=== PATIENT | male | born 1975 | race African-American/Black ===

== ENCOUNTER 2018-02-07 23:30 | Emergency (ER) | payer MEDICAID ==
[~2018-02-07] VITALS: Ht 170.2 cm; Wt 72.6 kg
[~2018-02-07 23:30] MED LIST: LEVE1000 PO; LEVE500T9 PO; SER100 PO
[2018-02-07 23:40] VITALS: BP_SYST 145
[2018-02-07] MEDS ORDERED: LORazepam 2 MG/ML VIAL (FOR ER USE) IVP ONE (23:45)
[2018-02-07] MEDS ORDERED: levETIRAcetam 500 MG TABLET PO ONE (23:45)
[2018-02-08] MEDS ORDERED: DIPHENHYDRAMINE HCL 25 MG CAPSULE PO ONE
[2018-02-08 00:01] LABS: BASOPHILS % (AUTO) 0.4 % (0.0-2.0); EOSINOPHILS # (AUTO) 0.1 K/uL (0.0-0.4); EOSINOPHILS % (AUTO) 1.7 % (0.0-4.0); HEMATOCRIT 39.5 % (36-54); HEMOGLOBIN 12.4 g/dL (14.0-18.0); LYMPHOCYTES # (AUTO) 2.1 K/uL (1.0-5.5); LYMPHOCYTES % (AUTO) 38.1 % (20.5-51.5); MEAN CORPUSCULAR HEMOGLOBIN 25 pg (27-31); MEAN CORPUSCULAR HGB CONC 32 % (32-36); MEAN CORPUSCULAR VOLUME 80 fL (79.0-98.0); MONOCYTES # (AUTO) 0.5 K/uL (0.0-1.0); MONOCYTES % (AUTO) 9.7 % (1.7-9.3); NEUTROPHILS # (AUTO) 2.9 K/uL (1.8-7.7); NEUTROPHILS % (AUTO) 50.1 % (40.0-70.0); PLATELET COUNT (AUTO) 230 K/uL (130-430); RED BLOOD CELL COUNT(AUTO) 4.97 MIL/uL (4.2-6.2); RED CELL DISTRIBUTION WIDTH 23.4 % (9.0-15.0); WHITE BLOOD COUNT (AUTO) 5.6 K/uL (4.8-10.8)
[2018-02-08 00:10] LABS: ANION GAP 13 (5-15); CALCIUM 9.3 mg/dL (8.4-11.0); CHLORIDE 105 mmol/L (98-107); CREATININE 1.11 mg/dL (0.55-1.30); GLUCOSE 103 mg/dL (70-99); POTASSIUM 3.7 mmol/L (3.5-5.1); SODIUM SERUM 142 mmol/L (136-145); UREA NITROGEN, BLOOD 8 mg/dL (8-21)
[2018-02-08 00:16] LABS: GFR AFRICAN AMERICAN 94 mL/min (>90)
[2018-02-08 00:17] LABS: ALANINE AMINOTRANSFERASE 37 U/L (12-78); ALBUMIN 4.2 g/dL (3.4-4.8); ALCOHOL, BLOOD 391 mg/dL (<10); ASPARTATE AMINOTRANSFERASE 47 U/L (10-37); TOTAL BILIRUBIN 0.2 mg/dL (0.0-1.0)
[2018-02-08] MEDS ORDERED: ONDANSETRON HCL 4 MG/2 ML VIAL IVP ONE (00:30)
[2018-02-08] MEDS ORDERED: FAMOTIDINE 20 MG TABLET PO ONE (00:30)
[2018-02-08 00:41] LABS: ACETAMINOPHEN < 1 ug/mL (1-30)
[2018-02-08 00:52] LABS: BILIRUBIN,URINE NEGATIVE (NEGATIVE); BLOOD, URINE NEGATIVE (NEGATIVE); CLARITY/URINE CLEAR (CLEAR); COLOR,URINE YELLOW (YELLOW); GLUCOSE,URINE NEGATIVE (NEGATIVE); KETONES,URINE NEGATIVE (NEGATIVE); LEUKOCYTE ESTERASE ,URINE NEGATIVE (NEGATIVE); NITRITE, URINE NEGATIVE (NEGATIVE); PROTEIN URINE NEGATIVE (NEGATIVE); UROBILINOGEN,URINE 0.2 (0.2-1.0)
[2018-02-08 00:59] LABS: BENZODIAZEPINE, URINE POSITIVE (NEG <=150)
[2018-02-08 01:00] LABS: BARBITURATE, URINE NEGATIVE (NEG <=200); CANNABINOID, URINE NEGATIVE (NEG <=50); COCAINE, URINE NEGATIVE (NEG <=150); METHAMPHETAMINES SCREEN,URINE NEGATIVE (NEG <=500); OPIATE, URINE NEGATIVE (NEG <=100); PHENCYCLIDINE SCREEN,URINE NEGATIVE (NEG <=25); UR TRICYCLIC ANTIDEPRESSANTS NEGATIVE (NEG <=300); URINE AMPHETAMINE NEGATIVE (NEG <=500); URINE METHADONE NEGATIVE (NEG <=200); URINE OXYCODONE SCREEN NEGATIVE (NEG <=100); URINE PROPOXYPHENE SCREEN NEGATIVE (NEG <=300)
[2018-02-08] MEDS ORDERED: DIPHENHYDRAMINE HCL 50 MG CAPSULE PO ONE ×2 (10:45→12:30)
[2018-02-08] MEDS ORDERED: levETIRAcetam 500 MG TABLET PO ONE (11:15)
[2018-02-08] MEDS ORDERED: DIPHENHYDRAMINE INJ 50 MG/ML VIAL IVP ONE (17:45)
[2018-02-08] MEDS ORDERED: LORazepam 2 MG/ML VIAL (FOR ER USE) IVP ONE (20:45)
[2018-02-09 02:55] VITALS: BP_SYST 141
== END 2018-02-09 02:55 ==
LOC: SED 23:30
DX: R45.851 Suicidal ideations (principal); G40.909 Epilepsy, unspecified, not intractable, without status epilepticus; F10.129 Alcohol abuse with intoxication, unspecified; Z88.6 Allergy status to analgesic agent; Z79.899 Other long term (current) drug therapy
CPT/HCPCS: 36415; 71045; 80053; 80307; 81003; 85025; 93005; 96374; 96375; 99285; G0480; G0482; J1200; J2060; J2405; Q0163 ×2

== ENCOUNTER 2018-08-06 21:11 | Inpatient (IN) | payer MEDICAID ==
[~2018-08-06] VITALS: Ht 167.6 cm; Wt 61.2 kg
[2018-08-06 21:14] VITALS: BP_SYST 147
[2018-08-06] MEDS ORDERED: methylPREDNISolone SOD SUCC/PF 62.5 MG/ML VIAL IM ONE (21:15)
[2018-08-06] MEDS ORDERED: EPINEPHrine 1 MG/ML AMP IM ONE (21:15)
[2018-08-06] MEDS ORDERED: DIPHENHYDRAMINE INJ 50 MG/ML VIAL IM ONE (21:15)
[2018-08-06] MEDS ORDERED: NACL 0.9% 1,000 ML IV ONE (21:15)
[2018-08-06] MEDS ORDERED: EPINEPHrine 1 MG/ML AMP ONE (21:23)
[2018-08-06] MEDS ORDERED: IPRATROPIUM/ALBUTEROL SULFATE 3 ML AMPUL.NEB (DUONEB) ONE (21:28)
[2018-08-06] MEDS ORDERED: IPRATROPIUM/ALBUTEROL SULFATE 3 ML AMPUL.NEB (DUONEB) INH ONE (21:30)
[2018-08-06 22:01] LABS: BILIRUBIN,URINE NEGATIVE (NEGATIVE); BLOOD, URINE 1+ (NEGATIVE); CLARITY/URINE CLEAR (CLEAR); COLOR,URINE YELLOW (YELLOW); GLUCOSE,URINE NEGATIVE (NEGATIVE); KETONES,URINE TRACE (NEGATIVE); LEUKOCYTE ESTERASE ,URINE NEGATIVE (NEGATIVE); NITRITE, URINE NEGATIVE (NEGATIVE); PH,URINE 5.5 (5.0-8.0); PROTEIN URINE 2+ (NEGATIVE); UROBILINOGEN,URINE 0.2 (0.2-1.0)
[2018-08-06 22:07] LABS: ANION GAP 14 (5-15); CALCIUM 8.6 mg/dL (8.4-11.0); CHLORIDE 103 mmol/L (98-107); CREATININE 0.88 mg/dL (0.55-1.30); GLUCOSE 111 mg/dL (70-99); POTASSIUM 3.9 mmol/L (3.5-5.1); SODIUM SERUM 141 mmol/L (136-145); UREA NITROGEN, BLOOD 9 mg/dL (8-21)
[2018-08-06 22:12] LABS: BACTERIA,URINE RARE /HPF (None Seen); RBC,URINE 0-3 /HPF (0-3); WBC,URINE 0-3 /HPF (0-3)
[2018-08-06 22:13] LABS: MUCUS,URINE None Seen /LPF (None Seen)
[2018-08-06 22:14] LABS: GFR AFRICAN AMERICAN 123 mL/min (>90)
[2018-08-06 22:15] LABS: ALANINE AMINOTRANSFERASE 122 U/L (12-78); ALBUMIN 4.1 g/dL (3.4-4.8); ASPARTATE AMINOTRANSFERASE 112 U/L (10-37); TOTAL BILIRUBIN 0.2 mg/dL (0.0-1.0)
[2018-08-06] MEDS ORDERED: MORPHINE 4 MG/ML INJ. SYRINGE IVP ONE (22:15)
[2018-08-06 22:19] LABS: ACETAMINOPHEN < 1 ug/mL (1-30); ALCOHOL, BLOOD 411 mg/dL (<10)
[2018-08-06 22:20] LABS: BARBITURATE, URINE NEGATIVE (NEG <=200); BENZODIAZEPINE, URINE NEGATIVE (NEG <=150); CANNABINOID, URINE NEGATIVE (NEG <=50); COCAINE, URINE NEGATIVE (NEG <=150); METHAMPHETAMINES SCREEN,URINE NEGATIVE (NEG <=500); PHENCYCLIDINE SCREEN,URINE NEGATIVE (NEG <=25); URINE AMPHETAMINE NEGATIVE (NEG <=500); URINE METHADONE NEGATIVE (NEG <=200)
[2018-08-06 22:21] LABS: OPIATE, URINE NEGATIVE (NEG <=100); UR TRICYCLIC ANTIDEPRESSANTS NEGATIVE (NEG <=300); URINE OXYCODONE SCREEN NEGATIVE (NEG <=100); URINE PROPOXYPHENE SCREEN NEGATIVE (NEG <=300)
[2018-08-06 22:28] LABS: HEMATOCRIT 32.1 % (36-54); RED BLOOD CELL COUNT(AUTO) 4.49 MIL/uL (4.2-6.2); WHITE BLOOD COUNT (AUTO) 6.8 K/uL (4.8-10.8)
[2018-08-06 22:29] LABS: MEAN CORPUSCULAR HEMOGLOBIN 22 pg (27-31); MEAN CORPUSCULAR HGB CONC 31 % (32-36); MEAN CORPUSCULAR VOLUME 72 fL (79.0-98.0); PLATELET COUNT (AUTO) 222 K/uL (130-430); RED CELL DISTRIBUTION WIDTH 28.2 % (9.0-15.0)
[2018-08-06] MEDS ORDERED: KLO2 PO (22:37)
[2018-08-06] MEDS ORDERED: LEVE750T12 PO (22:37)
[2018-08-06 23:09] LABS: BAND % (MANUAL) 1 % (0-6); LYMPHOCYTES % (MANUAL) 51 % (20-46)
[2018-08-06 23:10] LABS: BASOPHILS % (MANUAL) 0 % (0-2); EOSINOPHILS % (MANUAL) 0 % (0-7); MONOCYTES % (MANUAL) 5 % (0-11)
[2018-08-06] MEDS ORDERED: D5NS 1,000 ML IV SCH (23:30)
[2018-08-06 23:45] VITALS: BP_SYST 155
[2018-08-07] MEDS: DIPHENHYDRAMINE HCL 25 MG CAPSULE PO PRN ×4 (01:40→18:32)
[2018-08-07] MEDS: LORazepam 1 MG TABLET PO PRN ×2 (01:40→06:20)
[2018-08-07] MEDS: MORPHINE 4 MG/ML INJ. SYRINGE IVP PRN ×6 (01:41→23:33)
[2018-08-07 01:58] VITALS: BP_SYST 118
[2018-08-07 08:00] VITALS: BP_SYST 104
[2018-08-07] MEDS ORDERED: chlordiazePOXIDE HCL 25 MG CAPSULE PO ONE (09:45)
[2018-08-07] MEDS: levETIRAcetam 500 MG in NS 100 ML IV SCH ×2 (10:29→21:34)
[2018-08-07 11:32] VITALS: BP_SYST 149
[2018-08-07] MEDS: BANANA BAG 1 EA, FOLIC ACID 1 MG, THIAMINE HCL 100 MG, MAGNESIUM SULFATE 1 GM, MVI 10 M... IV SCH ×5 (12:03)
[2018-08-07] MEDS: chlordiazePOXIDE HCL 25 MG CAPSULE PO SCH ×2 (14:25→21:34)
[2018-08-07 15:21] VITALS: BP_SYST 125
[2018-08-07] MEDS: LORazepam 2 MG/ML VIAL IVP PRN (17:39)
[2018-08-07 20:00] VITALS: BP_SYST 136
[2018-08-08 00:34] VITALS: BP_SYST 153
[2018-08-08] MEDS: LORazepam 2 MG/ML VIAL IVP PRN ×2 (01:20→21:08)
[2018-08-08 07:38] LABS: TOTAL IRON BIND. CAPACITY 384 ug/dL (250-450)
[2018-08-08 07:52] LABS: THYROID STIMULATING HORMONE 0.37 uIu/mL (0.36-3.74)
[2018-08-08 08:10] VITALS: BP_SYST 132
[2018-08-08] MEDS: chlordiazePOXIDE HCL 25 MG CAPSULE PO SCH ×3 (09:07→20:59)
[2018-08-08] MEDS: levETIRAcetam 500 MG in NS 100 ML IV SCH ×2 (09:07→21:00)
[2018-08-08] MEDS: MORPHINE 4 MG/ML INJ. SYRINGE IVP PRN ×2 (09:37→16:24)
[2018-08-08] MEDS: BANANA BAG 1 EA, FOLIC ACID 1 MG, THIAMINE HCL 100 MG, MAGNESIUM SULFATE 1 GM, MVI 10 M... IV SCH ×5 (09:53)
[2018-08-08 12:38] VITALS: BP_SYST 120
[2018-08-08] MEDS: DIPHENHYDRAMINE HCL 25 MG CAPSULE PO PRN ×2 (13:11→20:59)
[2018-08-08 15:50] VITALS: BP_SYST 108
[2018-08-08 20:58] VITALS: BP_SYST 132
[2018-08-08 23:34] VITALS: BP_SYST 134
[2018-08-09] MEDS: DIPHENHYDRAMINE HCL 25 MG CAPSULE PO PRN (04:31)
[2018-08-09] MEDS: LORazepam 2 MG/ML VIAL IVP PRN ×2 (05:04→23:14)
[2018-08-09] MEDS: chlordiazePOXIDE HCL 25 MG CAPSULE PO SCH ×3 (08:36→21:11)
[2018-08-09] MEDS: levETIRAcetam 500 MG in NS 100 ML IV SCH ×2 (08:36→21:12)
[2018-08-09 08:40] VITALS: BP_SYST 113
[2018-08-09] MEDS: BANANA BAG 1 EA, FOLIC ACID 1 MG, THIAMINE HCL 100 MG, MAGNESIUM SULFATE 1 GM, MVI 10 M... IV SCH ×5 (10:30)
[2018-08-09 11:22] VITALS: BP_SYST 118
[2018-08-09] MEDS: MORPHINE 4 MG/ML INJ. SYRINGE IVP PRN ×2 (11:25→19:40)
[2018-08-09 13:06] LABS: FOLATE (FOLIC ACID) >20.0 ng/mL (>3.0)
[2018-08-09 13:56] LABS: FERRITIN 25 ng/mL (30-400)
[2018-08-09 15:15] VITALS: BP_SYST 115
[2018-08-09 20:00] VITALS: BP_SYST 92
[2018-08-10 02:51] VITALS: BP_SYST 108
[2018-08-10] MEDS: levETIRAcetam 500 MG in NS 100 ML IV SCH ×2 (08:23→20:33)
[2018-08-10] MEDS: MORPHINE 4 MG/ML INJ. SYRINGE IVP PRN ×3 (08:24→20:34)
[2018-08-10 08:44] VITALS: BP_SYST 122
[2018-08-10] MEDS: chlordiazePOXIDE HCL 25 MG CAPSULE PO SCH ×3 (09:19→20:33)
[2018-08-10] MEDS: BANANA BAG 1 EA, FOLIC ACID 1 MG, THIAMINE HCL 100 MG, MAGNESIUM SULFATE 1 GM, MVI 10 M... IV SCH ×5 (10:04)
[2018-08-10 11:28] VITALS: BP_SYST 122
[2018-08-10 15:27] VITALS: BP_SYST 125
[2018-08-10] MEDS: LORazepam 2 MG/ML VIAL IVP PRN ×2 (17:04→22:31)
[2018-08-10 20:00] VITALS: BP_SYST 127
[2018-08-11 00:22] VITALS: BP_SYST 134
[2018-08-11] MEDS: MORPHINE 4 MG/ML INJ. SYRINGE IVP PRN (03:09)
[2018-08-11] MEDS: LORazepam 2 MG/ML VIAL IVP PRN (05:04)
[2018-08-11] MEDS: chlordiazePOXIDE HCL 25 MG CAPSULE PO SCH (08:28)
[2018-08-11] MEDS: levETIRAcetam 500 MG in NS 100 ML IV SCH (08:28)
[2018-08-11 08:42] VITALS: BP_SYST 118
[2018-08-11] MEDS: BANANA BAG 1 EA, FOLIC ACID 1 MG, THIAMINE HCL 100 MG, MAGNESIUM SULFATE 1 GM, MVI 10 M... IV SCH ×5 (10:48)
[2018-08-11 12:37] VITALS: BP_SYST 134
[2018-08-11] MEDS ORDERED: LEVE500T9 PO (13:47)
[2018-08-11 13:55] VITALS: BP_SYST 118
== END 2018-08-11 14:20 | disposition home or self-care (01) | DRG 53 ==
LOC: SED 21:11 → SMU 23:21
PROVIDERS: ADMIT Internal Medicine Hospice and Palliative Medicine; ATTEND Internal Medicine Hospice and Palliative Medicine
DX: G40.909 Epilepsy, unspecified, not intractable, without status epilepticus (principal); R65.10 Systemic inflammatory response syndrome (SIRS) of non-infectious origin without acute organ dysfunction; D64.9 Anemia, unspecified; F10.229 Alcohol dependence with intoxication, unspecified; R74.0 Nonspecific elevation of levels of transaminase and lactic acid dehydrogenase [LDH]; F12.90 Cannabis use, unspecified, uncomplicated; F17.200 Nicotine dependence, unspecified, uncomplicated; Z91.14 Patient's other noncompliance with medication regimen; Z59.0 Homelessness; Z88.8 Allergy status to other drugs, medicaments and biological substances; Z79.899 Other long term (current) drug therapy
CPT/HCPCS: 36415; 70551; 71045; 76700-TC; 80053; 80307; 81000-TC; 82607; 82728; 82746; 82962; 83540-TC; 83550-TC; 83615-TC; 84443-TC; 84484; 85007; 85027; 87081; 93005; 94640; 96361; 96372; 96374; 97110-GP; 97116-GP; 97530-GP; 99285; G0480; G0481; G0482; J0171; J1200; J1953; J2060; J2270; J2930; J3411; J3475; J3490; J7030; J7042; J7620; Q0163

== ENCOUNTER 2019-10-10 15:19 | Emergency (ER) | payer MEDICAID ==
[~2019-10-10] VITALS: Ht 167.6 cm; Wt 63.5 kg
[~2019-10-10 15:19] MED LIST changes: +KLO2 PO; -LEVE1000 PO; -SER100 PO
[2019-10-10 15:21] VITALS: BP_SYST 125
--- NOTE | 2019-10-10 15:21 | NUR ---
Patient to ER bed 02 to gown for evaluation. Side rails up.
--- NOTE | 2019-10-10 15:25 | NUR ---
Pt bib ambulance to ER with c/o abdominal pain 03/16 x 4 hours. Reports n/v and bloody emesis.
--- NOTE | 2019-10-10 15:30 | NUR ---
ER Dr. Robledo at bedside examining patient.
[2019-10-10] MEDS ORDERED: NACL 0.9% 1,000 ML IV ONE (15:45)
--- NOTE | 2019-10-10 16:10 | NUR ---
Lab at bedside to collect blood samples
--- NOTE | 2019-10-10 16:20 | NUR ---
# 24 gauge angiocath placed to L foot. Use of asceptic technique. Opsite placed over site. Blood return noted. Flushed with 10 cc of normal saline. No evidence of infiltration noted. Patient tolerated well.
--- NOTE | 2019-10-10 16:25 | NUR ---
1L NS infusing as ordered by
[2019-10-10 16:34] LABS: HEMOGLOBIN 11.7 g/dL (14.0-18.0); MEAN CORPUSCULAR HEMOGLOBIN 24 pg (27-31); MEAN CORPUSCULAR HGB CONC 32 % (32-36); MEAN CORPUSCULAR VOLUME 77 fL (79.0-98.0); PLATELET COUNT (AUTO) 111 K/uL (130-430); RED BLOOD CELL COUNT(AUTO) 4.81 MIL/uL (4.2-6.2); RED CELL DISTRIBUTION WIDTH 25.8 % (9.0-15.0); WHITE BLOOD COUNT (AUTO) 3.2 K/uL (4.8-10.8)
[2019-10-10 16:42] LABS: CALCIUM 8.4 mg/dL (8.4-11.0); CREATININE 0.91 mg/dL (0.55-1.30); POTASSIUM 3.9 mmol/L (3.5-5.1)
[2019-10-10 16:50] LABS: ALBUMIN 3.8 g/dL (3.4-4.8); TOTAL BILIRUBIN 0.3 mg/dL (0.0-1.0)
[2019-10-10 17:21] LABS: BAND % (MANUAL) 0 % (0-6); BASOPHILS % (MANUAL) 0 % (0-2); EOSINOPHILS % (MANUAL) 3 % (0-7); LYMPHOCYTES % (MANUAL) 39 % (20-46); MONOCYTES % (MANUAL) 18 % (0-11)
[2019-10-10] MEDS ORDERED: fentaNYL CITRATE/PF 100 MCG/2 ML AMP IVP ONE (17:30)
[2019-10-10] MEDS ORDERED: DIPHENHYDRAMINE INJ 50 MG/ML VIAL IVP ONE (17:30)
--- NOTE | 2019-10-10 17:35 | NUR ---
Medicated the pt w/ Fentanyl and Benadryl given IVP per MD order. Will reassess
--- NOTE | 2019-10-10 18:50 | NUR ---
Patient given written and verbal discharge instructions and verbalizes understanding. ER MD discussed with patient the results and treatment provided. Patient in stable condition. ID arm band removed. IV catheter removed intact and dressing applied, no active bleeding. Rx of Carafate given. Patient educated on pain management and to follow up with PMD. Pain Scale 3/10. Opportunity for questions provided and answered. Medication side effect fact sheet provided.
--- NOTE | 2019-10-10 18:56 | NUR ---
Pt provided w/ transportation to his destination, pt has adequate clothing, meal provided, and homeless packet provided
--- NOTE | 2019-10-10 19:05 | NUR ---
Patient given written and verbal discharge instructions and verbalizes understanding. ER MD discussed with patient the results and treatment provided. Patient in stable condition. ID arm band removed. IV catheter removed intact and dressing applied, no active bleeding. Rx of Carafate given. Patient educated on pain management and to follow up with PMD. Pain Scale 3. Opportunity for questions provided and answered. Medication side effect fact sheet provided.
[2019-10-10 19:08] VITALS: BP_SYST 143
== END 2019-10-10 19:08 | disposition home or self-care (01) ==
LOC: SED 15:19
DX: K29.20 Alcoholic gastritis without bleeding (principal); F10.10 Alcohol abuse, uncomplicated; R11.2 Nausea with vomiting, unspecified; G40.909 Epilepsy, unspecified, not intractable, without status epilepticus; Z88.6 Allergy status to analgesic agent; Y90.8 Blood alcohol level of 240 mg/100 ml or more
CPT/HCPCS: 36415; 80053; 83690; 85007; 85027; 96361; 96374; 96375; 99284; G0482; J1200; J3010; J7030

== ENCOUNTER 2019-10-12 21:18 | Emergency (ER) | payer MEDICAID ==
[~2019-10-12] VITALS: Ht 167.6 cm; Wt 63.5 kg
[2019-10-12 21:18] VITALS: BP_SYST 149
[2019-10-12] MEDS ORDERED: FAMOTIDINE 20 MG TABLET PO ONE (21:45)
[2019-10-12] MEDS ORDERED: predniSONE 1 MG TABLET PO ONE (21:45)
[2019-10-12] MEDS ORDERED: PREDNISONE 20 MG TABLET ONE (22:07)
[2019-10-13 00:10] VITALS: BP_SYST 119
== END 2019-10-13 00:10 | disposition home or self-care (01) ==
LOC: SED 21:18
DX: T51.91XA Toxic effect of unspecified alcohol, accidental (unintentional), initial encounter (principal); G40.909 Epilepsy, unspecified, not intractable, without status epilepticus; F10.10 Alcohol abuse, uncomplicated; Z88.6 Allergy status to analgesic agent; X58.XXXA Exposure to other specified factors, initial encounter; Y90.9 Presence of alcohol in blood, level not specified
CPT/HCPCS: 99283; J7512

== ENCOUNTER 2021-12-23 17:22 | Emergency (ER) | payer MEDICAID ==
[~2021-12-23] VITALS: Ht 167.6 cm; Wt 63.5 kg
[2021-12-23 17:22] VITALS: BP_SYST 137
[2021-12-23] MEDS ORDERED: NACL 0.9% 1,000 ML IV ONE (17:30)
[2021-12-23] MEDS ORDERED: methylPREDNISolone SOD SUCC/PF 62.5 MG/ML VIAL IVP ONE (17:30)
[2021-12-23] MEDS ORDERED: FAMOTIDINE PF 20 MG/2 ML VIAL IVP ONE (17:30)
[2021-12-23] MEDS ORDERED: DIPHENHYDRAMINE INJ 50 MG/ML VIAL IVP ONE (17:30)
[2021-12-23] MEDS ORDERED: methylPREDNISolone SOD SUCC/PF 62.5 MG/ML VIAL ONE (18:13)
[2021-12-23] MEDS ORDERED: EPIN0.3P3 IM (20:54)
[2021-12-23] MEDS ORDERED: PRED20TA PO (20:54)
[2021-12-23] MEDS ORDERED: BEN50 PO (20:54)
[2021-12-23 21:19] VITALS: BP_SYST 115
== END 2021-12-23 21:19 | disposition home or self-care (01) ==
LOC: SED 17:22
DX: T78.1XXA Other adverse food reactions, not elsewhere classified, initial encounter (principal); Z91.018 Allergy to other foods; Z88.6 Allergy status to analgesic agent; Z79.899 Other long term (current) drug therapy; X58.XXXA Exposure to other specified factors, initial encounter
CPT/HCPCS: 99284; 96374; 96375; 96361; J1200; J3490; J2930; J7030

== ENCOUNTER 2022-05-28 23:57 | Emergency (ER) | payer MEDICAID ==
[~2022-05-28] VITALS: Ht 167.6 cm; Wt 65.8 kg
[~2022-05-28 23:57] MED LIST changes: +BEN50 PO; +EPIN0.3P3 IM; +PRED20TA PO
[2022-05-28 23:59] VITALS: BP_SYST 139
[2022-05-29] MEDS ORDERED: LORazepam 2 MG/ML VIAL IM ONE
[2022-05-29] MEDS ORDERED: NACL 0.9% 1,000 ML IV ONE
[2022-05-29] MEDS ORDERED: levETIRAcetam 500 MG in NS 100 ML IV ONE ×2
--- NOTE | 2022-05-29 | NUR ---
LATE ENTRY: PT STARTED HAVING SEIZURE AT 2351. MADE AWARE AND VERBAL ORDER OF ATIVAN 2MG IM REC. PRIMARY NURSE VALARIE MADE AWARE.
--- NOTE | 2022-05-29 | NUR ---
Patient to ER bed 01 to gown for evaluation. Side rails up. Report given to VALARIE FLYNN.
--- NOTE | 2022-05-29 | NUR ---
ERMD AT BEDSIDE EVALUATING PATIENT
--- NOTE | 2022-05-29 00:05 | NUR ---
# 20 gauge angiocath placed to L AC. Use of asceptic technique. Opsite placed over site. Blood return noted. Blood for lab drawn from site. Flushed with 10 cc of normal saline. No evidence of infiltration noted. Patient tolerated well.
--- NOTE | 2022-05-29 00:10 | NUR ---
PT BIB AMB FROM STREETS. PT WAS FOUND LAYING ON [facility] BUS FLOOR. PT STATES HE HAD A SEIZURE. SEIZURE WAS UNWITNESSED. PATIENT WAS ALERT UPON ARIVAL TO ED. PT STATES HE HAS A HISTORY OF SEIZURES AND LUNG CANCER. UNKNOWN IF PATIENT HIT HEAD. PATIENT DENIES PAIN, SOB, HEADACHE, CHEST PAIN, DRUG USE. A/O X3. PATIENT GOES IN AND OUT OF SLEEP. ETOH ON PATIENTS BREATH.
--- NOTE | 2022-05-29 00:32 | NUR ---
LAB AT BEDSIDE
[2022-05-29 00:48] LABS: BASOPHILS % (AUTO) 0.2 % (0.0-2.0); HEMATOCRIT 37.7 % (36-54); LYMPHOCYTES # (AUTO) 1.1 K/uL (1.0-5.5); MEAN CORPUSCULAR HEMOGLOBIN 26 pg (27-31); MEAN CORPUSCULAR HGB CONC 32 % (32-36); MEAN CORPUSCULAR VOLUME 82 fL (79.0-98.0); MONOCYTES # (AUTO) 0.1 K/uL (0.0-1.0); MONOCYTES % (AUTO) 3.3 % (1.7-9.3); NEUTROPHILS # (AUTO) 1.6 K/uL (1.8-7.7); NEUTROPHILS % (AUTO) 57.5 % (40.0-70.0); PLATELET COUNT (AUTO) 269 K/uL (130-430); RED CELL DISTRIBUTION WIDTH 22.1 % (9.0-15.0); WHITE BLOOD COUNT (AUTO) 2.8 K/uL (4.8-10.8)
[2022-05-29 00:55] LABS: CREATININE 0.79 mg/dL (0.55-1.30)
--- NOTE | 2022-05-29 01:00 | NUR ---
IV removed from L AC due to bent IV cath. Full dose of keppra was administered.
[2022-05-29 01:05] LABS: ALBUMIN 3.5 g/dL (3.4-4.8); TOTAL BILIRUBIN 0.1 mg/dL (0.0-1.0)
--- NOTE | 2022-05-29 02:01 | NUR ---
Pt is not compliant and combative when attempting to place an IV. No IV placement at this time.
[2022-05-29 04:48] VITALS: BP_SYST 136
--- NOTE | 2022-05-29 04:48 | NUR ---
Patient resting quietly. No acute distress noted. Vital signs within normal range.
[2022-05-29] MEDS ORDERED: LEVE500T9 PO (05:25)
--- NOTE | 2022-05-29 07:29 | NUR ---
ASSUMED PATIENT CARE EYE CLOSE EASILY AWAKEN ON GUARD [place]ENA[place], SEIZURE PRECAUTION IN PLACE, WILL CONTINUE TO MONITOR.
--- NOTE | 2022-05-29 08:47 | NUR ---
PATIENT REMAINS IN BED, AWAITING FOR PATIENT TO SOBER UP.
--- NOTE | 2022-05-29 09:06 | NUR ---
PATIENT AWAKEN AMBULATORY TO THE BATHROOM, BREAKFAST GIVEN, EDP MADE AWARE AWAITING FOR DISPOSITION.
--- NOTE | 2022-05-29 09:24 | NUR ---
Patient given written and verbal discharge instructions and verbalizes understanding. ER MD discussed with patient the results and treatment provided. Patient in stable condition. ID arm band removed. IV catheter removed intact and dressing applied, no active bleeding. Rx of KEPPRA given. Patient educated on pain management and to follow up with PMD. Pain Scale 0. Opportunity for questions provided and answered. Medication side effect fact sheet provided.
--- NOTE | 2022-05-29 09:25 | NUR ---
PATIENT GIVEN CHLOTHING AND INSTRUCTION.
== END 2022-05-29 09:24 | disposition home or self-care (01) ==
LOC: SED 23:57
DX: F10.129 Alcohol abuse with intoxication, unspecified (principal); R56.9 Unspecified convulsions; Z88.6 Allergy status to analgesic agent; Z91.018 Allergy to other foods; Z79.899 Other long term (current) drug therapy; Y90.6 Blood alcohol level of 120-199 mg/100 ml
CPT/HCPCS: 99285; 71045; 80053; 85025; 36415; 96365; 70450; 76376; 96372; G0482; J7030

== ENCOUNTER 2022-09-19 18:16 | Emergency (ER) | payer MEDICAID ==
[~2022-09-19] VITALS: Ht 167.6 cm; Wt 63.5 kg
[2022-09-19 18:26] VITALS: BP_SYST 123
[2022-09-19] MEDS ORDERED: PANTOPRAZOLE SODIUM 40 MG/VIAL (PROTONIX) IVP ONE (18:30)
[2022-09-19] MEDS ORDERED: ONDANSETRON HCL 4 MG/2 ML VIAL IVP ONE (18:30)
[2022-09-19 19:24] LABS: BASOPHILS % (AUTO) 0.1 % (0.0-2.0); EOSINOPHILS % (AUTO) 0.7 % (0.0-4.0); HEMATOCRIT 34.8 % (36-54); HEMOGLOBIN 11.2 g/dL (14.0-18.0); LYMPHOCYTES # (AUTO) 2.1 K/uL (1.0-5.5); LYMPHOCYTES % (AUTO) 36.1 % (20.5-51.5); MEAN CORPUSCULAR HEMOGLOBIN 25 pg (27-31); MEAN CORPUSCULAR HGB CONC 32 % (32-36); MEAN CORPUSCULAR VOLUME 77 fL (79.0-98.0); MONOCYTES # (AUTO) 0.5 K/uL (0.0-1.0); MONOCYTES % (AUTO) 8.8 % (1.7-9.3); NEUTROPHILS # (AUTO) 3.1 K/uL (1.8-7.7); NEUTROPHILS % (AUTO) 54.3 % (40.0-70.0); PLATELET COUNT (AUTO) 139 K/uL (130-430); RED BLOOD CELL COUNT(AUTO) 4.52 MIL/uL (4.2-6.2); RED CELL DISTRIBUTION WIDTH 24.3 % (9.0-15.0); WHITE BLOOD COUNT (AUTO) 5.8 K/uL (4.8-10.8)
[2022-09-19] MEDS ORDERED: DIPHENHYDRAMINE INJ 50 MG/ML VIAL IVP ONE (19:30)
[2022-09-19 19:42] LABS: CREATININE 0.89 mg/dL (0.55-1.30)
[2022-09-19 19:46] LABS: ALBUMIN 3.5 g/dL (3.4-4.8); TOTAL BILIRUBIN 0.3 mg/dL (0.0-1.0)
[2022-09-19] MEDS ORDERED: OMEP40CA20 PO (21:42)
[2022-09-20 00:18] VITALS: BP_SYST 107
== END 2022-09-20 00:18 | disposition home or self-care (01) ==
LOC: SED 18:16
DX: F10.129 Alcohol abuse with intoxication, unspecified (principal); K21.9 Gastro-esophageal reflux disease without esophagitis; F10.10 Alcohol abuse, uncomplicated; F17.200 Nicotine dependence, unspecified, uncomplicated; R10.13 Epigastric pain; R11.0 Nausea; Z88.6 Allergy status to analgesic agent; Z91.018 Allergy to other foods; Z79.899 Other long term (current) drug therapy; Y90.6 Blood alcohol level of 120-199 mg/100 ml
CPT/HCPCS: 99284; 96374; 96375; 80053; 82140; 83690; 85025; 36415; G0482; J1200; J2405; C9113; 93005

== ENCOUNTER 2022-10-01 17:20 | Emergency (ER) | payer MEDICAID ==
[~2022-10-01] VITALS: Ht 167.6 cm; Wt 64.9 kg
[2022-10-01 17:20] VITALS: BP_SYST 151
[~2022-10-01 17:20] MED LIST changes: +OMEP40CA20 PO
--- NOTE | 2022-10-01 17:30 | NUR ---
LOREN SIU EXAMINING PT ON [facility]ON[facility]
[2022-10-01] MEDS ORDERED: EPINEPHRINE HCL/PF 1 MG/ML AMP ONE (17:40)
[2022-10-01] MEDS ORDERED: EPINEPHrine HCL 1 MG/ML VIAL IM ONE (17:45)
[2022-10-01] MEDS ORDERED: methylPREDNISolone SOD SUCC/PF 62.5 MG/ML VIAL IM ONE (17:45)
[2022-10-01] MEDS ORDERED: DIPHENHYDRAMINE INJ 50 MG/ML VIAL IM ONE (17:45)
[2022-10-01] MEDS ORDERED: methylPREDNISolone SOD SUCC/PF 62.5 MG/ML VIAL ONE (17:48)
--- NOTE | 2022-10-01 17:50 | NUR ---
Placed in room 07 . Placed on rn chemical dependency, blood pressure machine and pulse oximeter. To gown for exam. Side rails up. Report given to GEE HUSSEIN.
--- NOTE | 2022-10-01 19:07 | NUR ---
PT BIB SELF FROM HOME WITH C/O ALLERGIC REACTION. EMS STATES THE PT WAS EATING A HOTDOG AND ONE BEER WHEN HE STARTED TO TURN RED AND COMPLAIN OF ABN PAIN. HX - SEIZURES, TESTICULAR TORSION. PT IS AAX04, NAD, VSS, PT IS BREATHING EVEN AND UNLABORED ON RA. 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 SAFETY PRECUATIONS AND COMFORT MEASURES IN PLACE. PENDING MD ROD AND ORDERS.
--- NOTE | 2022-10-01 19:16 | NUR ---
REPORT GIVEN TO CARL FLYNN FOR CONTINUITY OF CARE. ALL QUESTIONS AND CONCERNS ADDRESSED. ALL CARE ENDORSED.
--- NOTE | 2022-10-01 20:04 | NUR ---
Patient resting at the moment.
--- NOTE | 2022-10-01 20:16 | NUR ---
Dr. Bowen went to talk to patient.
[2022-10-01] MEDS ORDERED: DIPH25CA83 PO (21:04)
[2022-10-01] MEDS ORDERED: PRED20TA PO (21:04)
--- NOTE | 2022-10-01 21:18 | NUR ---
Patient and his friend in room yelling saying that they don't want to be "rushed when they want to take an uber back home." Patient agreeable to uber for the address he stated.
[2022-10-01 21:23] VITALS: BP_SYST 134
--- NOTE | 2022-10-01 21:25 | NUR ---
Patient given written and verbal discharge instructions and verbalizes understanding. ER MD discussed with patient the results and treatment provided. Patient in stable condition. ID arm band removed. IV removed. Rx of meds given. Patient educated on pain management and to follow up with PMD. Opportunity for questions provided and answered. Medication side effect fact sheet provided.
== END 2022-10-01 21:28 | disposition home or self-care (01) ==
LOC: SED 17:20
DX: T78.40XA Allergy, unspecified, initial encounter (principal); R21 Rash and other nonspecific skin eruption; Z91.018 Allergy to other foods; Z88.6 Allergy status to analgesic agent; Z79.899 Other long term (current) drug therapy; X58.XXXA Exposure to other specified factors, initial encounter
CPT/HCPCS: 99285; 96372; J1200; J0171; J2930

== ENCOUNTER 2022-10-09 15:46 | Emergency (ER) | payer MEDICAID ==
[~2022-10-09] VITALS: Ht 167.6 cm; Wt 65.8 kg
[~2022-10-09 15:46] MED LIST changes: +DIPH25CA83 PO
--- NOTE | 2022-10-09 15:55 | NUR ---
Patient to ER bed 2 to gown for evaluation. Side rails up. Report given to SILVINA FLYNN.
[2022-10-09] MEDS ORDERED: LORazepam 2 MG/ML VIAL IVP ONE (16:30)
[2022-10-09 16:59] LABS: ANION GAP 12 (5-15); CALCIUM 8.1 mg/dL (8.4-11.0); CHLORIDE 108 mmol/L (98-107); CREATININE 0.85 mg/dL (0.55-1.30); GFR AFRICAN AMERICAN 125 mL/min (>90); GLUCOSE 103 mg/dL (70-99); UREA NITROGEN, BLOOD 10 mg/dL (8-21)
[2022-10-09 17:11] LABS: ALANINE AMINOTRANSFERASE 27 U/L (12-78); ALBUMIN 3.5 g/dL (3.4-4.8); ALCOHOL, BLOOD 374 mg/dL (<10); AMYLASE 129 U/L (0-100); ASPARTATE AMINOTRANSFERASE 15 U/L (10-37); LIPASE 508 U/L (73-393); TOTAL BILIRUBIN 0.2 mg/dL (0.0-1.0)
[2022-10-09 17:12] LABS: C-REACTIVE PROTEIN QUANT < 0.2 mg/dL (0-0.5)
[2022-10-09] MEDS ORDERED: MORPHINE 4 MG INJ. 4 MG/ML VIAL IVP ONE (19:15)
[2022-10-09] MEDS ORDERED: DIPHENHYDRAMINE INJ 50 MG/ML VIAL IVP ONE (19:30)
--- NOTE | 2022-10-09 19:41 | NUR ---
REPORT RECEIVED FROM SILVINA FLYNN
--- NOTE | 2022-10-09 21:00 | NUR ---
ER at bedside examining patient.
[2022-10-09 21:47] LABS: BILIRUBIN,URINE NEGATIVE (NEGATIVE); BLOOD, URINE NEGATIVE (NEGATIVE); CLARITY/URINE CLEAR (CLEAR); COLOR,URINE YELLOW (YELLOW); GLUCOSE,URINE NEGATIVE (NEGATIVE); KETONES,URINE NEGATIVE (NEGATIVE); LEUKOCYTE ESTERASE ,URINE NEGATIVE (NEGATIVE); NITRITE, URINE NEGATIVE (NEGATIVE); PH,URINE 7.5 (5.0-8.0); PROTEIN URINE NEGATIVE (NEGATIVE); UROBILINOGEN,URINE 0.2 (0.2-1.0)
[2022-10-09 22:32] VITALS: BP_SYST 97
--- NOTE | 2022-10-09 22:34 | NUR ---
Patient given written and verbal discharge instructions and verbalizes understanding. ER MD discussed with patient the results and treatment provided. Patient in stable condition. ID arm band removed. IV catheter removed intact and dressing applied, no active bleeding. Patient educated on pain management and to follow up with PMD. Opportunity for questions provided and answered. Medication side effect fact sheet provided.
== END 2022-10-09 22:32 | disposition home or self-care (01) ==
LOC: SED 15:46
DX: N50.811 Right testicular pain (principal); R56.9 Unspecified convulsions; Z88.6 Allergy status to analgesic agent; Z91.018 Allergy to other foods; Z79.899 Other long term (current) drug therapy
CPT/HCPCS: 99285; 74176; 96374; 71045; 96375; 80053; 82150; 83690; 86140; 36415; 76376; 76870; 83605; 81003; G0482; J1200; J2270

== ENCOUNTER 2022-11-16 15:20 | Emergency (ER) | payer MEDICAID ==
[~2022-11-16] VITALS: Ht 167.6 cm; Wt 69.9 kg
[2022-11-16 15:20] VITALS: BP_SYST 134
[2022-11-16] MEDS ORDERED: NACL 0.9% 1,000 ML IV ONE (16:30)
[2022-11-16] MEDS ORDERED: ONDANSETRON HCL 4 MG/2 ML VIAL IVP ONE (16:30)
[2022-11-16] MEDS ORDERED: MORPHINE 2 MG/ML INJ. SYRINGE IVP ONE (16:30)
[2022-11-16] MEDS ORDERED: DIPHENHYDRAMINE INJ 50 MG/ML VIAL IVP ONE (16:30)
[2022-11-16 16:57] LABS: BILIRUBIN,URINE NEGATIVE (NEGATIVE); BLOOD, URINE NEGATIVE (NEGATIVE); CLARITY/URINE CLEAR (CLEAR); COLOR,URINE YELLOW (YELLOW); GLUCOSE,URINE NEGATIVE (NEGATIVE); KETONES,URINE NEGATIVE (NEGATIVE); LEUKOCYTE ESTERASE ,URINE NEGATIVE (NEGATIVE); NITRITE, URINE NEGATIVE (NEGATIVE); PROTEIN URINE NEGATIVE (NEGATIVE); UROBILINOGEN,URINE 0.2 (0.2-1.0)
[2022-11-16 17:04] LABS: BASOPHILS # (AUTO) 0.1 K/uL (0.0-0.2); BASOPHILS % (AUTO) 0.9 % (0.0-2.0); EOSINOPHILS % (AUTO) 0.1 % (0.0-4.0); HEMATOCRIT 35.9 % (36-54); HEMOGLOBIN 11.3 g/dL (14.0-18.0); LYMPHOCYTES # (AUTO) 2.1 K/uL (1.0-5.5); LYMPHOCYTES % (AUTO) 21.3 % (20.5-51.5); MEAN CORPUSCULAR HEMOGLOBIN 24 pg (27-31); MEAN CORPUSCULAR HGB CONC 31 % (32-36); MEAN CORPUSCULAR VOLUME 77 fL (79.0-98.0); MONOCYTES # (AUTO) 0.8 K/uL (0.0-1.0); NEUTROPHILS # (AUTO) 6.9 K/uL (1.8-7.7); NEUTROPHILS % (AUTO) 69.7 % (40.0-70.0); PLATELET COUNT (AUTO) 211 K/uL (130-430); RED BLOOD CELL COUNT(AUTO) 4.65 MIL/uL (4.2-6.2); RED CELL DISTRIBUTION WIDTH 24.9 % (9.0-15.0); WHITE BLOOD COUNT (AUTO) 9.9 K/uL (4.8-10.8)
[2022-11-16 17:21] LABS: CALCIUM 9.5 mg/dL (8.4-11.0); CREATININE 0.84 mg/dL (0.55-1.30)
[2022-11-16 17:27] LABS: PHOSPHORUS 3.7 mg/dL (2.7-4.5); TOTAL BILIRUBIN 0.2 mg/dL (0.0-1.0)
[2022-11-16 17:45] LABS: PROTHROMBIN TIME 10.2 SECS (9.5-12.5)
[2022-11-16] MEDS ORDERED: ACET325T PO (18:31)
[2022-11-16] MEDS ORDERED: ONDA-8 TL (18:31)
[2022-11-16 19:12] VITALS: BP_SYST 131
== END 2022-11-16 19:52 | disposition home or self-care (01) ==
LOC: SED 15:20
DX: F10.239 Alcohol dependence with withdrawal, unspecified (principal); N50.3 Cyst of epididymis; R11.2 Nausea with vomiting, unspecified; Z91.018 Allergy to other foods; Z88.6 Allergy status to analgesic agent; Z79.899 Other long term (current) drug therapy; Y90.6 Blood alcohol level of 120-199 mg/100 ml
CPT/HCPCS: 99285; 74176; 96374; 96375; 96361; 80053; 83690; 83735; 84100; 85025; 85610; 85730; 36415; 76376; 76870; 81003; G0482; J1200; J2405; J2270; J7030